=== PATIENT | female | born 1980 | race Caucasian/White ===

== ENCOUNTER 2024-11-25 09:40 | Outpatient (REF) | payer MEDICAID, SELFPAY ==
--- NOTE | 2024-11-25 09:20 | ENDO_PTH ---
PATIENT: Amairani Lord LOC: [facility] U#:[id number] AGE/SX: 44/F ROOM: RE11/25/[address]: Genesis Gallardo DO : 1980 BED: DIS: 11/25/2024 SPEC #: [id number] RECD: 11/25/24 12:49 STATUS: DUNG REQ #: [id number] LAKESHIA: 11/25/24 09:[address]: Genesis Gallardo DEPT: Surgical Specimen RECD BY: Erica Jimenez ENTERED: 11/25/24 12:49 SP TYPE: Endo OTHR DR: Unknown,Unknown Tissues: 1 - ENDOCERVICAL BX/CURRETTE Procedures: GROSS AND MICRO LEVEL 4 Comments: [id number]
== END 2024-11-25 09:41 | disposition home or self-care (01) ==
LOC: LBN 09:40
PROVIDERS: Visit Provider Obstetrics & Gynecology
DX: R87.612 Low grade squamous intraepithelial lesion on cytologic smear of cervix (LGSIL) (principal)
CPT/HCPCS: 88305

== ENCOUNTER 2025-01-19 13:39 | Outpatient (REF) | payer MEDICAID, SELFPAY ==
--- NOTE | 2025-01-19 13:10 | CER_PTH ---
PATIENT: Amairani Lord LOC: [facility] U#:[id number] AGE/SX: 44/F ROOM: RE01/19/[address]: Genesis Gallardo DO : 1980 BED: DIS: 01/19/2025 SPEC #: [id number] RECD: 01/19/25 15:58 STATUS: DUNG REQ #: [id number] LAKESHIA: 01/19/25 13:[address]: Genesis Gallardo DEPT: Surgical Specimen RECD BY: Erica Jimenez ENTERED: 01/19/25 15:58 SP TYPE: CER OTHR DR: Unknown,Unknown Tissues: 1 - CERVICAL BIOPSY Procedures: GROSS AND MICRO LEVEL 5 Comments: [id number]
== END 2025-01-19 13:40 | disposition home or self-care (01) ==
LOC: LBN 13:39
PROVIDERS: Visit Provider Obstetrics & Gynecology
DX: N87.0 Mild cervical dysplasia (principal)
CPT/HCPCS: 88305; 88307